=== PATIENT | female | born 2000 | race Caucasian/White ===

== ENCOUNTER 2020-06-09 23:20 | Emergency (ER) | payer OTHER ==
[~2020-06-09] VITALS: Ht 152.4 cm; Wt 62.8 kg
[2020-06-09 23:24] VITALS: Ht 152.4 cm; Wt 62.8 kg
[2020-06-10 02:39] VITALS: BP 104/48
== END 2020-06-10 02:05 | disposition home or self-care (01) ==
LOC: ED 23:20
DX: O26.892 Other specified pregnancy related conditions, second trimester (principal); M54.5 Low back pain; Z3A.24 24 weeks gestation of pregnancy